=== PATIENT | female | born 1980 | race Caucasian/White ===

== ENCOUNTER → 2020-08-02 | Outpatient (CLI) | payer OTHER | END | disposition home or self-care (01) | LOC: COVID19 15:36 | PROVIDERS: ATTEND Internal Medicine | DX: Z20.828 Contact with and (suspected) exposure to other viral communicable diseases (principal) ==

== ENCOUNTER 2021-12-15 17:49 | Emergency (ER) | payer OTHER ==
[~2021-12-15] VITALS: Wt 102.1 kg
[2021-12-15] MEDS ORDERED: PREDNISONE20 M1 PO (19:53)
[2021-12-15] MEDS ORDERED: METHOCARBAMOL500 M1 PO (19:53)
== END 2021-12-15 21:02 | disposition home or self-care (01) ==
LOC: ED 17:49
DX: M54.32 Sciatica, left side (principal); Z88.1 Allergy status to other antibiotic agents

== ENCOUNTER 2022-04-30 16:36 | Emergency (ER) | payer OTHER ==
[~2022-04-30] VITALS: Ht 165.1 cm; Wt 115.7 kg
[~2022-04-30 16:36] MED LIST: METHOCARBAMOL500 M1 PO; PREDNISONE20 M1 PO
== END 2022-04-30 18:50 | disposition home or self-care (01) ==
LOC: ED 16:36
DX: S99.921A Unspecified injury of right foot, initial encounter (principal); Z88.1 Allergy status to other antibiotic agents; X50.9XXA Other and unspecified overexertion or strenuous movements or postures, initial encounter; Y93.89 Activity, other specified; Y92.89 Other specified places as the place of occurrence of the external cause; Y99.8 Other external cause status

== ENCOUNTER 2022-05-28 14:48 | Emergency (ER) | payer OTHER ==
[~2022-05-28] VITALS: Ht 162.5 cm; Wt 110.2 kg
[2022-05-28] MEDS ORDERED: MELOXICAM7.5 MG PO (15:19)
[2022-05-28] MEDS ORDERED: MEDROL DOSEPAK4 MG PO ×3 (17:47→18:13)
[2022-05-28] MEDS ORDERED: METHOCARBAMOL750 M1 PO ×3 (17:47→18:13)
== END 2022-05-28 18:06 | disposition home or self-care (01) ==
LOC: ED 14:48
DX: M54.16 Radiculopathy, lumbar region (principal); Z88.1 Allergy status to other antibiotic agents; Z88.8 Allergy status to other drugs, medicaments and biological substances; Z79.899 Other long term (current) drug therapy

== ENCOUNTER 2025-04-12 13:05 | Emergency (ER) | payer OTHER ==
[~2025-04-12] VITALS: Ht 162.5 cm; Wt 79.4 kg
[~2025-04-12 13:05] MED LIST changes: +MEDROL DOSEPAK4 MG PO; +MELOXICAM7.5 MG PO; +METHOCARBAMOL750 M1 PO
[2025-04-12] MEDS ORDERED: Acetaminophen/Oxycodone 5 MG/325 MG TABLET PO ONE (13:25)
[2025-04-12] MEDS ORDERED: MELOXICAM15 MG PO (13:27)
== END 2025-04-12 13:59 | disposition home or self-care (01) ==
LOC: ED 13:05
DX: R07.81 Pleurodynia (principal); Z88.1 Allergy status to other antibiotic agents; Z88.6 Allergy status to analgesic agent; Z79.899 Other long term (current) drug therapy; X50.9XXA Other and unspecified overexertion or strenuous movements or postures, initial encounter; Y93.89 Activity, other specified; Y92.89 Other specified places as the place of occurrence of the external cause; Y99.8 Other external cause status